=== PATIENT | male | born 1980 | race Two or more races ===

== ENCOUNTER 2016-11-10 13:01 | Emergency (ER) | payer BC ==
[~2016-11-10] VITALS: Ht 182.9 cm; Wt 108.9 kg
[2016-11-10 13:11] VITALS: BP 141/79
--- NOTE | 2016-11-10 13:26 | PHYS DOC ---
Past Medical History Past Medical History: No Pertinent History Past Surgical History: No Surgical History Alcohol Use: None Drug Use: None Adult General Chief Complaint Chief Complaint: UPPER EXTREMITY PAIN HPI HPI Patient is a 36 year old male presents to the emergency department stating that he is having right elbow pain and forearm pain. Patient states the pain started yesterday. He has not taken anything for pain and discomfort. He does have swelling noted around the elbow/forearm area. Patient is right-hand dominant. Patient does state that he has some heavy lifting at work that is repetitive motion. Denies any numbness or tingling down to the lower extremities. Review of Systems Review of Systems Constitutional: Denies fever or chills [] Eyes: Denies change in visual acuity, redness, or eye pain [] HENT: Denies nasal congestion or sore throat [] Respiratory: Denies cough or shortness of breath [] Cardiovascular: No additional information not addressed in HPI [] GI: Denies abdominal pain, nausea, vomiting, bloody stools or diarrhea [] : Denies dysuria or hematuria [] Musculoskeletal: Denies back pain. Complaint of right elbow pain Integument: Denies rash or skin lesions [] Neurologic: Denies headache, focal weakness or sensory changes [] Endocrine: Denies polyuria or polydipsia [] Current Medications Current Medications Current Medications Medications (Trade) Dose Ordered Sig/Ale Start Time Stop Time Status Last Admin Dose Admin Ibuprofen (Motrin) 800 mg 1X ONCE 11/10/16 14:15 11/10/16 14:16 DC 11/10/16 14:11 800 MG Lidocaine/Sodium Bicarbonate (Buffered Lidocaine 1%) 20 ml 1X ONCE 11/10/16 14:30 11/10/16 14:31 DC 11/10/16 14:30 20 ML Allergies Allergies Allergies Coded Allergies Type Severity Reaction Last Updated Verified No Known Drug Allergies 11/10/16 No Physical Exam Physical Exam Constitutional: Well developed, well nourished, no acute distress, non-toxic appearance. [] HENT: Normocephalic, atraumatic, bilateral external ears normal, oropharynx moist, no oral exudates, nose normal. [] Eyes: PERRLA, EOMI, conjunctiva normal, no discharge. [] Neck: Normal range of motion, no tenderness, supple, no stridor. [] Cardiovascular:Heart rate regular rhythm, no murmur [] Lungs & Thorax: Bilateral breath sounds clear to auscultation []right elbow Skin: Warm, dry, no erythema, no rash. [] Back: No tenderness Extremities: No tenderness, no cyanosis, no clubbing, ROM intact, no edema. Patient with warmth and swelling noted to the right elbow area. Peripheral pulses 2+ cap refill brisk less than 2 seconds. Area appears to be boarded to touch. No streaking noted. Neurologic: Alert and oriented X 3, normal motor function, normal sensory function, no focal deficits noted. [] Psychologic: Affect normal, judgement normal, mood normal. [] Current Patient Data Vital Signs Vital Signs Date Time Temp Pulse Resp B/P (MAP) Pulse Ox O2 Delivery O2 Flow Rate FiO2 11/10/16 13:11 98.3 90 20 97 Room Air 98.3 Lab Values Laboratory Tests Test 11/10/16 13:30 White Blood Count 12.4 x10^3/uL (4.0-11.0) H Red Blood Count 5.26 x10^6/uL (4.30-5.70) Hemoglobin 15.3 g/dL (13.0-17.5) Hematocrit 45.6 % (39.0-53.0) Mean Corpuscular Volume 87 fL (79-100) Mean Corpuscular Hemoglobin 29 pg (25-35) Mean Corpuscular Hemoglobin Concent 34 g/dL (31-37) Red Cell Distribution Width 14.2 % (11.5-14.5) Platelet Count 278 x10^3/uL (140-400) Neutrophils (%) (Auto) 66 % (31-73) Lymphocytes (%) (Auto) 22 % (24-48) L Monocytes (%) (Auto) 10 % (0-9) H Eosinophils (%) (Auto) 1 % (0-3) Basophils (%) (Auto) 1 % (0-3) Neutrophils # (Auto) 8.2 x10^3uL (1.8-7.7) H Lymphocytes # (Auto) 2.7 x10^3/uL (1.0-4.8) Monocytes # (Auto) 1.3 x10^3/uL (0.0-1.1) H Eosinophils # (Auto) 0.1 x10^3/uL (0.0-0.7) Basophils # (Auto) 0.1 x10^3/uL (0.0-0.2) Erythrocyte Sedimentation Rate 5 (0-15) C-Reactive Protein, Quantitative 20.8 mg/L (0-3.3) H Laboratory Tests 11/10/16 13:30 EKG EKG [] Radiology/Procedures Radiology/Procedures [][facility] [address] [place] [address] IMAGING REPORT Signed PATIENT: CLOVIS WEAVER ACCOUNT: [id number] : 1980 LOCATION: ER AGE: 36 SEX: M EXAM STATUS: REG ER ORD. PHYSICIAN: CECILIA BRANTLEY APRN REASON: right elbow pain and swelling PROCEDURE: ELBOW RIGHT 3V Right elbow, 3 views, 11/10/2016: History: Elbow pain No fracture or dislocation is identified. There is mild spurring at the elbow joint. There is bowing of the fat pads compatible with a small joint effusion. IMPRESSION: 1. No acute bony abnormality is detected. 2. Small elbow joint effusion. DICTATED and SIGNED BY: FERDINAND GILLIAM MD DATE: 11/10/16 1348 CC: CECILIA BRANTLEY APRN; NO PCP; NON,STAFF ~ Course & Med Decision Making Course & Med Decision Making Pertinent Labs and Imaging studies reviewed. (See chart for details) X-ray identified a joint effusion, small in the right elbow area. Patient's white count was slightly elevated at 12.4. C-reactive protein was elevated at 20.6. Dr Covington aware of the labs and x-ray. Dr Covington aspirated the elbow with culture sent. Patient was provided with discharge instructions, treatment regimen and followup recommends. Patient will be discharged home in stable condition. Signs and symptoms to return to the emergency department has been provided. All questions and concerns have been answered at patients bedside. [] Dragon Disclaimer Dragon Disclaimer This electronic medical record was generated, in whole or in part, using a voice recognition dictation system. Departure Departure Impression: Primary Impression: Bursitis due to bacterial infection Disposition: HOME, SELF-CARE Condition: STABLE Referrals: CRISTY MCFARLAND II, MD Patient Instructions: Bone and Joint Infections, Bursitis, [id number] Additional Instructions: Activity as tolerated. Tylenol or ibuprofen for pain and discomfort. Ibuprofen will also help with inflammation. Antibiotics as prescribed. No lifting over 10 pounds Follow-up with orthopedic within the next week. Return back to emergency prior signs symptoms of become worse. Scripts Dicloxacillin Sodium (DICLOXACILLIN SODIUM) 500 Mg Capsule 1 CAP PO QID, #56 CAP Prov: CECILIA BRANTLEY APRN 11/10/16 Arthrocentesis Indication: Right elbow pain Consent: Consent given by patient. Procedure: The right elbow was positioned appropriately and the landmarks were identified. Local anesthesia was buffered lidocaine 1 mL. The area was then prepped and draped in the usual sterile fashion. A needle was then introduced into the joint space ,10 mL of yellow . liquid was expressed. A sterile dressing was then applied to the site. The patient tolerated the procedure well. Complications: none. Procedure performed by CECILIA Sarah APRN Nov 10, 2016 13:26 EMMY COVINGTON MD Nov 10, 2016 15:24
--- NOTE | 2016-11-10 13:46 | RAD ---
Right elbow, 3 views, 11/10/2016: History: Elbow pain No fracture or dislocation is identified. There is mild spurring at the elbow joint. There is bowing of the fat pads compatible with a small joint effusion. IMPRESSION: 1. No acute bony abnormality is detected. 2. Small elbow joint effusion.
[2016-11-10 13:58] LABS: BASO # 0.1 x10^3/uL (0.0-0.2); BASO % 1 % (0-3); EOS % 1 % (0-3); HEMATOCRIT 45.6 % (39.0-53.0); HEMOGLOBIN 15.3 g/dL (13.0-17.5); LYMPH # 2.7 x10^3/uL (1.0-4.8); LYMPH % 22 % (24-48); MEAN CORPUSCULAR HEMOGLOBIN 29 pg (25-35); MEAN CORPUSCULAR HGB CONC 34 g/dL (31-37); MEAN CORPUSCULAR VOLUME 87 fL (79-100); MONO % 10 % (0-9); NEUT % 66 % (31-73); PLATELET COUNT 278 x10^3/uL (140-400); RED BLOOD COUNT 5.26 x10^6/uL (4.30-5.70); RED CELL DISTRIBUTION WIDTH 14.2 % (11.5-14.5); WHITE BLOOD COUNT 12.4 x10^3/uL (4.0-11.0)
[2016-11-10] MEDS ORDERED: IBUPROFEN 800 MG TABLET. PO ONE (14:15)
[2016-11-10] MEDS ORDERED: LIDOCAINE 1% / SOD BICARB 8.4% 20 ML VIAL. IJ ONE (14:30)
[2016-11-10] MEDS ORDERED: DICL500C PO (14:59)
== END 2016-11-10 15:15 | disposition home or self-care (01) ==
LOC: ER 13:01
DX: M70.831 Other soft tissue disorders related to use, overuse and pressure, right forearm (principal); Y93.89 Activity, other specified
CPT/HCPCS: 20605; 36415; 73080; 85025; 85651; 86140; 87071; 87075; 87205; 99285-25

== ENCOUNTER → 2017-01-31 | Outpatient (CLI) | payer BC ==
[~2017-01-31] MED LIST: DICL500C PO
--- NOTE | 2017-02-01 09:54 | SLEEP ---
DATE OF STUDY: 01/31/2017 SLEEP STUDY ATTENDING PHYSICIAN: Laurence Mahoney M.D. The patient is 36 years old who weighs 240 pounds with a BMI of 33. The patient's Clayton score was 18, suggesting severe subjective hypersomnia. A split-night study was performed at [facility]. During the night study, the patient spent 447 minutes in bed and slept for 417 minutes, with a sleep efficiency of 93%. Sleep latency was 8 minutes with a REM latency of 164 minutes. Overall, sleep architecture showed normal stage I sleep, increased stage II sleep, normal slow wave and normal REM sleep. During the initial diagnostic portion of the study, the patient slept for 129 minutes. During that time, there were 125 obstructive apneas, no mixed or central apneas and 29 hypopneas. The patient's apnea-hypopnea index was 72 per hour, supine index 71 per hour. REM sleep was not seen during the diagnostic portion of the study. Review of nocturnal oximetry study revealed a mean oxygen saturation of 96%, with the lowest of 71%. 18% of the time, oxygen saturation remained between 80% and 89% and 10% of the time, between 70% and 79%. EKG monitoring revealed normal sinus rhythm. Occasional PACs were seen. Average heart rate was 83 beats per minute. PLMs were not seen. The patient met the criteria for CPAP initiation. It was started at 5 cm water and titrated up to 11 cm water. At the final pressure, the patient slept for 48 minutes. The patient had supine as well as REM sleep. The patient's AHI was reduced to 1 per hour and oxygen saturation remained above 91%. The patient used medium-sized nasal pillows. IMPRESSION: 1. Severe sleep apnea-hypopnea syndrome at an AHI of 72 per hour. 2. Nocturnal hypoxia secondary to obstructive sleep apnea, but resolved with CPAP. 3. No evidence of periodic limb movements of sleep. RECOMMENDATIONS: 1. CPAP at 11 cm water completely eliminated the patient's sleep apnea, should be used on a nightly basis. 2. Follow up in 4-6 weeks to assess compliance with CPAP and to document clinical improvement. 3. Weight loss is strongly advised. 4. Avoid RETORT LOADER depressants. 5. Caution regarding driving until symptoms of sleep apnea resolve with the use of CPAP. JOSEPH JULES MD DR: HEENA/luiz JOB#: [id number] / [id number] LAURENCE Dixon MD MTDD
== END | disposition home or self-care (01) ==
LOC: SLPLAB 18:37
PROVIDERS: ATTEND Internal Medicine Pulmonary Disease
DX: G47.33 Obstructive sleep apnea (adult) (pediatric) (principal)
CPT/HCPCS: 95810